=== PATIENT | female | born 1955 | race Caucasian/White ===

== ENCOUNTER → 2024-02-08 07:20 | Outpatient (REF) | payer OTHER, SELFPAY | LOC: RAD 07:20 | PROVIDERS: ATTENDING PHYSICIAN Podiatrist; FAMILY PHYSICIAN Internal Medicine | DX: I73.9 Peripheral vascular disease, unspecified (principal) | CPT/HCPCS: 93922; 93925 ==

== ENCOUNTER → 2024-02-08 11:51 | Outpatient (REF) | payer OTHER, SELFPAY | LOC: EMG 11:51 | PROVIDERS: ATTENDING PHYSICIAN Internal Medicine | DX: G62.9 Polyneuropathy, unspecified (principal); R20.0 Anesthesia of skin | CPT/HCPCS: 95886; 95913 ==

== ENCOUNTER 2024-08-19 18:33 | Inpatient (IN) | payer BC, SELFPAY ==
[2024-08-19] VITALS (16 sets, daily range): BP systolic 133–177; BP diastolic 65–88; BMI 18.2
[2024-08-19 14:43] LABS: % Basophils 0.6 % (0-2); % Eosinophils 2.3 % (0-6); % Immature Granulocytes 0.5 % (0-0.5); % Monocytes 8.7 % (1.7-9.3); % Neutrophils 75.9 % (42.2-75.2); Absolute Eosinophils 0.2 10^3/uL (0-0.7); Absolute Lymphocytes 0.8 10^3/uL (1.2-3.4); Absolute Monocytes 0.6 10^3/uL (0.1-0.6); Absolute Neutrophils 4.9 10^3/uL (1.4-6.5); Hematocrit 25.6 % (37.0-47.0); Hemoglobin 7.9 g/dL (12.0-16.0); Mean Corp Hgb Conc. 30.9 g/dL (33.0-37.0); Mean Corpuscular Hgb 20.8 pg (27.0-31.0); Mean Corpuscular Volume 67.5 fL (81.0-99.0); Mean Platelet Volume 9.3 fL (7.4-10.4); Nucleated Red Blood Cells % 0 %; Platelet Count 512 10^3/uL (130-400); Red Blood Cell Count 3.79 10^6/uL (4.20-5.40); Red Cell Dist. Width 23.3 % (11.5-14.5); White Blood Cell Count 6.4 10^3/uL (4.8-10.8)
[2024-08-19 16:48] LABS: ALT (SGPT) 19 U/L (0-35); AST (SGOT) 24 U/L (14-36); Albumin 4.7 g/dl (3.5-5.0); Alkaline Phosphatase 63 U/L (38-126); Blood Urea Nitrogen 40 mg/dl (7-17); Calcium 10.2 mg/dl (8.4-10.2); Carbon Dioxide 23 mmol/L (22-30); Chloride 102 mmol/L (98-107); Glucose 92 mg/dl (70-99); Potassium 4.8 mmol/L (3.5-5.1); Sodium 134 mmol/L (135-145); Total Bilirubin 0.5 mg/dl (0.2-1.3); Total Protein 6.7 g/dl (6.3-8.2); eGFR > 60.00
--- NOTE | 2024-08-19 16:50 | ED.GENMED ---
History of Present Illness
General
Chief Complaint: Abnormal Lab Value
Source: patient
Exam Limitations: none
Time Seen by Provider: 08/19/24 15:23
Nursing documentation reviewed up to this point in time: agreed with
History of Present Illness
History of Present Illness:
68-year-old female presenting to the emergency department today with concerns of low hemoglobin prior to arrival performed by the primary care doctor yesterday resulted today in the sixes. Has had some generalized fatigue weakness over the past few
weeks. Denies any noticeable GI changes. Denies any known bleeding. Does take iron daily
Past History
Past History
ED Past Medical History: GERD, HTN, AL, Other (Pulmonary hypertension, scleroderma, lumbar DJD, lumbar spinal stenosis, sciatica, postherpetic neuralgia, barrets esophagus, hiatel hernia, ) and Other (Crest syndrome/scleroderma, Raynaud's)
ED Past Surgical History: Appendectomy, Gynecological (Hysterectomy), Orthopedic (Left wrist) and Other (Rectal prolapse repair, Hernia repair, Adhesions)
Social History
Tobacco: Non-smoker
Alcohol: None
Personal:
Living: with family
Employment: Employed
Family History
Family History: Other (Noncontributory)
Review of Systems
Review of Systems
Allergies reviewed?: Yes
All Other Systems: ROS reviewed and negative except as documented in HPI and ROS
Phy Exam
Physical Exam
Physical Exam:
GENERAL: Alert , in no apparent distress
EYE: pupils equal and reactive
NECK: Supple, no significant adenopathy.
ENT: o/p clr, mmm.
CARDIAC: Regular rate and rhythm .
LUNGS: Clear breath sounds bilaterally, no acute respiratory distress, no wheezes/rales/rhonchi
ABDOMEN: Rectal examination with brown stool guaiac positive, otherwise abdomen soft, without focal tenderness, no r/g, no cvat
NEUROLOGICAL: Alert and oriented, no focal neuro deficits
SKIN: Warm and dry, skin intact.
MUSCULOSKELETAL: No edema, well perfused.
PSYCH: Normal and appropriate interaction.
Course
Orders/Labs/Results
Orders:
Orders
08/19/24 14:30
CBC/With Diff [Complete Blood Count/With Diff] Urgent
08/19/24 16:08
* Blood Bank Products Urgent
Blood Bank Products: *Packed RBC Leuko(PRBC's)
Quantity: 1
Transfuse Today: Yes
Reason: Anemia
08/19/24 16:23
Type And Crossmatch [Type+Screen] Urgent
Comprehensive Metabolic Panel Urgent
08/19/24 16:39
ABO2 Routine
BBK Wristband Number:
Associate notified that ABO2 has been ordered: ROLANDO
Date: 08/19/24
Time: 16:34
Bucket Hooker ID: [id number]
Abnormal Lab Results
08/19/24 08/19/24
14:30 16:23
RBC 3.79 L 10^6/uL
(4.20-5.40)
Hgb 7.9 L g/dL
(12.0-16.0)
Hct 25.6 L %
(37.0-47.0)
MCV 67.5 L fL
(81.0-99.0)
MCH 20.8 L pg
(27.0-31.0)
MCHC 30.9 L g/dL
(33.0-37.0)
RDW 23.3 H %
(11.5-14.5)
Plt Count 512 H 10^3/uL
(130-400)
Absolute Lymphs (auto) 0.8 L 10^3/uL
(1.2-3.4)
Neutrophils % 75.9 H %
(42.2-75.2)
Lymphocytes % 12.0 L %
(20.5-51.1)
Sodium 134 L mmol/L
(135-145)
BUN 40 H mg/dl
(7-17)
08/19/24 14:30
08/19/24 16:23
Vital Signs
Initial and Last Documented VS:
Initial Vital Signs
Temp Pulse Resp BP Pulse Ox
98.2 F 84 16 174/75 98
08/19/24 14:18 08/19/24 14:18 08/19/24 14:18 08/19/24 14:18 08/19/24 14:18
Last Documented Vital Signs
Temp Pulse Resp BP Pulse Ox
98.2 F 84 16 174/75 98
08/19/24 14:18 08/19/24 14:18 08/19/24 14:18 08/19/24 14:18 08/19/24 14:18
MDM/Problems Addressed
MDM/Problems Addressed:
68-year-old female presenting to the emergency department today for concerns of low hemoglobin that was drawn yesterday at [facility] here was 3 drawn 7.9 slightly lower than outpatient lab from a week ago but higher than what was drawn
yesterday. However the patient did have a rectal examination that revealed blood in her stool concerning this plan to give a unit of blood and monitor overnight here.
*Critical Care Note
Total Time (30-74mins, 75-104mins- exclusive of procedures): Not Applicable
ED Attending Note
-
Portions of this chart may have been created with voice recognition software.� Occasional wrong word or��sound alike� substitutions may have occurred due to the inherent limitations of voice recognition software.
Discharge Plan
Departure
Patient Disposition: Admit
Date of Disposition: 08/19/24
Time of Disposition: 16:54
Admit to: Med/Surg
Admit to doctor: Kimi
Presentation/result/management discussed w/ accepting MD/DO: Hospitalist
Patient with high blood pressure during this ER visit?: No
Condition: Good
Covid-19: Not Applicable
Discharge Problem:
GI bleed, Anemia
Prescriptions:
No Action
dexlansoprazole [Dexilant] 60 MG capsule,biphase delayed releas
60 mg PO DAILY
ibuprofen [Advil] 200 MG tablet
800 mg PO PRN PRN (Reason: pain)
Amlodipine
5 mg PO DAILY
Dipyridamole
50 mg PO TID
Lidocaine
1 applic topical TID
Patient Comments:
5% cream to right leg
Lisinopril
5 mg PO DAILY
Ranitidine
300 mg PO HS
Sildenafil
20 mg PO TID
Gabapentin
600 mg PO TID
tramadol [Ultram] 50 MG tablet
50 mg PO BID
ondansetron 4 MG tablet,disintegrating
4 mg PO Q6HPRN PRN (Reason: nausea)
promethazine 25 MG tablet
12.5 mg PO Q6HPRN PRN (Reason: vomiting) Qty: 10 0RF
acetaminophen-codeine 1 TABLET tablet
1 tab PO Q4HPRN PRN (Reason: pain) Qty: 14 0RF
docusate sodium [Colace] 100 MG capsule
100 mg PO BID Qty: 20 0RF
prednisone 20 mg tablet
20 mg PO BID Qty: 14 0RF
tramadol 100 mg tablet
100 mg PO Q6H PRN (Reason: pain) Qty: 30 0RF
docusate sodium [Colace] 100 mg capsule
100 mg PO BID PRN (Reason: constipation) Qty: 20 0RF
Referrals:
Diane Evans NP [Family Provider] -
Interventions
Interventions:
*Risk Screen - Suicide Last Done: 08/19/24 14:18
*Neglect/Abuse Screening Last Done: 08/19/24 14:18
Discharge Date and Time
Print Language: LIBERIAN
[2024-08-19] MEDS: PROTONIX IV 80 MG IV (17:05)
--- NOTE | 2024-08-19 18:14 | W.PN.UPDATE ---
Update Note
Progress Note Update
Seen and examined by me independently in collaboration with the medical collections.
Past medical history/social history/medication/allergies reviewed.
Lab data and imaging data reviewed.
Patient sent in because of severe anemia noted on the labs. She has 2 months of fatigue but no acute coronary syndrome symptoms or shortness of breath. She is hemodynamically stable.
She has heme positive brown stools.
She has history of systemic sclerosis or crest syndrome. She has issues of dysphagia secondary to that. Denies any prior history of GI bleed needing hospital admission or transfusion.
He occasionally takes NSAIDs but not on a daily basis for neuropathy.
EGD from last year showed severe esophagitis with salmon-colored mucosa and was bleeding to touch with the scope. She had biopsies as well done and I do not have a report on them.
She also had a colonoscopy at the same time and apparently no signs of bleeding.
She has iron deficiency based on CBC parameters.
Admit to hospital. Transfuse PRBC and follow H&H.
Give her on PPI twice daily. She is on multitude of GERD treatments including PPI, Pepcid and Tums.
Check iron studies.
Keep on clear liquids for now. Consult GI.
Blood pressure on the higher side which she says was noticed recently as well. She is on combination of Norvasc and methotrexate which I would continue. Will start him on IV hydralazine as needed and adjust antihypertensives as needed.
For systemic sclerosis she is on methotrexate with folic acid which I would continue.
Full code
[2024-08-19 18:26] LABS: Iron < 20 ug/dl (37-170)
--- NOTE | 2024-08-19 18:33 | HPS.HSE ---
Family Physician
-
Family Physician: Diane Evans
Chief Complaint
-
Abnormal lab value on outpatient blood work
History of Present Illness
Patient is a 68-year-old pleasant lady who has a history of systemic sclerosis and crest syndrome, GERD, hypertension, pulmonary hypertension, UT, rectal prolapse presenting to the ED for evaluation of abnormal lab value on outpatient blood work,
specifically low hemoglobin. 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 Patient saw PCP on Thursday and on repeat blood work, her hemoglobin was found to be low (~6). Patient reports
she has been feeling more tired for the past couple weeks. Denies shortness of breath, dizziness, chest pain, change in bowel movements, recent weight loss, melena, hematochezia, hematemesis. Patient has had difficulty swallowing solid food given
her history of crest syndrome but notes symptoms of dysphagia or dyspepsia have not progressed recently.
Patient reports she was evaluated for possible GI bleeding over a year ago by her razor grinder. Upon review of her chart, her ED EGD in 2022 shows Gordon's esophagus. Per patient, colonoscopy was unremarkable and she was told she had anal
fissure. She denies any family history of GI cancer. Has been taking ibuprofen intermittently but not on a regular daily basis. She takes folic acid and cyanocobalamin daily.
Medical History
Past Medical History
Past Medical History: Reports GERD, HTN, UT and Other (Systemic sclerosis, crest syndrome, pulmonary hypertension, rectal prolapse, small bowel obstruction)
Past Surgical History: Reports Appendectomy, Gynocological and Orthopedic
Social History
Tobacco: Non-smoker
Living: With Family
Family History
Family History: Other (No family history of GI cancer, daughter has lymphoma)
Allergies / Home Medications
Allergies reflects when Allergies were last updated in [facility].
Home Medications with original date entered in [facility]
Allergy/Medication List:
Allergies
Allergy/AdvReac Type Severity Reaction Status Date / Time
acetaminophen [From Percocet] Allergy Intermediate Rash Verified 08/19/24 14:18
oxycodone [From Percocet] Allergy Intermediate Rash Verified 08/19/24 14:18
Cephalosporins Allergy Unknown Verified 08/19/24 14:18
penicillin G Allergy Rash Verified 08/19/24 14:18
Sulfa (Sulfonamide Allergy Rash Verified 08/19/24 14:18
Antibiotics)
Home Medications
ibuprofen 200 mg tablet (Advil) 600 mg PO DAILYPRN PRN mild pain 08/05/13
amlodipine 10 mg tablet (Norvasc) 10 mg PO DAILY 08/19/24
biotin 1 mg capsule 1 mg PO DAILY 08/19/24
cholecalciferol (vitamin D3) 25 mcg (1,000 unit) tablet (Vitamin D3) 25 mcg PO DAILY 08/19/24
cyanocobalamin (vitamin B-12) 1,000 mcg tablet 1,000 mcg PO DAILY 08/19/24
cyclosporine 0.05 % eye drops in a dropperette (Restasis) 1 drp BOTH EYES Q12H 08/19/24
docusate sodium 100 mg capsule (Colace) 100 mg PO BIDPRN PRN constipation 08/19/24
duloxetine 30 mg capsule,delayed release (Cymbalta) 30 mg PO DAILY 08/19/24
famotidine 40 mg tablet (Pepcid) 40 mg PO HS 08/19/24
folic acid 1 mg tablet 1 mg PO DAILY 08/19/24
hydrochlorothiazide 12.5 mg tablet 12.5 mg PO DAILY 08/19/24
methotrexate sodium 2.5 mg tablet 12.5 mg PO FR 08/19/24
oxycodone 5 mg tablet 5 mg PO TIDPRN PRN severe pain 08/19/24
sildenafil (pulm.hypertension) 20 mg tablet 60 mg PO DAILY 08/19/24
therapeutic multivitamin 1 tab PO DAILY 08/19/24
Review of Systems
-
History Source: Patient
Constitutional: Reports Fatigue
EENT: Reports No Symptoms
Respiratory: Reports No Symptoms
Cardiac: Reports No Symptoms
Abdomen/GI: Reports No Symptoms
: Reports No Symptoms
Musculoskeletal: Reports No Symptoms
Skin: Reports No Symptoms
Neurological: Reports No Symptoms
Endocrine: Reports No Symptoms
Hematologic/Lymphatic: Reports No Symptoms
Psych: Reports No Symptoms
Physical Exam
Vital Signs
Vital Signs
Temp Pulse Resp BP Pulse Ox
98.2 F 71 15 166/75 98
08/19/24 18:04 08/19/24 18:04 08/19/24 18:04 08/19/24 18:04 08/19/24 14:18
Physical Exam
General: Well Developed, No Apparent Distress, Comfortable and Cachectic
HEENT: NormoCephalic, [place] Conjunctivae and Other (No supraclavicular lymphadenopathy)
Respiratory: Clear
Cardiac: S1/S2 and Regular Rhythm
GI: Soft, Non Tender, Non Distended and Normal Bowel Sounds
Musculoskeletal: No Clubbing, No Cyanosis, No Edema and Other (Raynaud's. 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 Contracture of the left middle finger.)
Skin: Warm
Neuro: Awake, Alert and Oriented
Hematologic/Lymphatic: No Lymphadenopathy
Psych: Calm
Laboratory Results
-
08/19/24 14:30
08/19/24 16:23
Laboratory Results
Total Bilirubin 0.5 mg/dl (0.2-1.3) 08/19/24 16:23
AST 24 U/L (14-36) 08/19/24 16:23
ALT 19 U/L (0-35) 08/19/24 16:23
Alkaline Phosphatase 63 U/L (38-126) 08/19/24 16:23
Impression/Plan
-
68-year-old female history of systemic sclerosis and crest syndrome, hypertension, GERD, pulmonary hypertension presenting to the ED with:
#Anemia, acute on chronic
- Vitals stable
- Guaiac positive
- Hemoglobin 7.9, patient is being transfused 1 unit PRBC
- EGD in 2022 showed Gordon's esophagus
- Suspect upper GI bleed given history and prior EGD
- GI consult
- Diet clear liquids
- Protonix 40 mg IV twice daily
- Continue Pepcid
- Hold Advil
- H&H
- Transfuse if hemoglobin less than 7
#Hypertension
- Continue amlodipine, hydrochlorothiazide
- Hydralazine as needed
#Pulmonary hypertension
- Continue sildenafil
#GERD
- Continue Pepcid
- Protonix 40 mg IV twice daily
#Systemic sclerosis, CREST syndrome
- Continue home meds
DVT prophylaxis SCD
Full code
[2024-08-19 18:35] LABS: Percent Saturation 4.71697 % (20-50); Total Iron Binding Capacity 424 ug/dl (265-497)
[2024-08-19 19:47] LABS: Ferritin 4.9 ng/ml (11.1-264.0)
[2024-08-19] MEDS: RESTASIS 0.05% OPHTHALMIC EMULSION 1 DROPS BOTH EYES (21:11)
[2024-08-19] MEDS: PEPCID 20 MG PO (21:12)
[2024-08-19] MEDS: METHOTREXATE 12.5 MG PO (21:12)
--- NOTE | 2024-08-20 04:58 | PTCARENOTE ---
Pt arrived to floor via stretecher and ambulated to bed with a steady gait. Pt aox3, VSS. Pt states she is feeling much better after transfusion. No other complaints at this time. Reviewed plan of care with pt. Pt oriented to room, call [facility] within
reach. Will continue to monitor.
[2024-08-20 06:11] LABS: % Basophils 0.8 % (0-2); % Eosinophils 8.8 % (0-6); % Immature Granulocytes 0.4 % (0-0.5); % Lymphocytes 11.5 % (20.5-51.1); % Monocytes 10.7 % (1.7-9.3); % Neutrophils 67.8 % (42.2-75.2); Absolute Eosinophils 0.5 10^3/uL (0-0.7); Absolute Lymphocytes 0.6 10^3/uL (1.2-3.4); Absolute Monocytes 0.6 10^3/uL (0.1-0.6); Absolute Neutrophils 3.5 10^3/uL (1.4-6.5); Hematocrit 30.3 % (37.0-47.0); Hemoglobin 9.5 g/dL (12.0-16.0); Mean Corp Hgb Conc. 31.4 g/dL (33.0-37.0); Mean Corpuscular Hgb 22.2 pg (27.0-31.0); Mean Corpuscular Volume 70.8 fL (81.0-99.0); Mean Platelet Volume 9.3 fL (7.4-10.4); Nucleated Red Blood Cells % 0 %; Platelet Count 411 10^3/uL (130-400); Red Blood Cell Count 4.28 10^6/uL (4.20-5.40); Red Cell Dist. Width 22.5 % (11.5-14.5); White Blood Cell Count 5.2 10^3/uL (4.8-10.8)
[2024-08-20 06:24] LABS: Blood Urea Nitrogen 32 mg/dl (7-17); Calcium 9.6 mg/dl (8.4-10.2); Carbon Dioxide 21 mmol/L (22-30); Chloride 106 mmol/L (98-107); Estimated Creatinine Clearance 46 ml/min; Glucose 86 mg/dl (70-99); Potassium 4.4 mmol/L (3.5-5.1); Sodium 136 mmol/L (135-145); eGFR > 60.00
[2024-08-20 07:00] VITALS: BP 195/91
[2024-08-20] MEDS: NORVASC 10 MG PO (07:54)
[2024-08-20] MEDS: NSS (PRESERVATIVE FREE) 10 ML IV (07:54)
[2024-08-20] MEDS: CYMBALTA DELAYED RELEASE 30 MG PO (07:54)
[2024-08-20] MEDS: VITAMIN B-12 1000 MCG PO (07:54)
[2024-08-20] MEDS: REVATIO 60 MG PO (07:54)
[2024-08-20] MEDS: THERAGRAN 1 TABLET PO (07:54)
[2024-08-20] MEDS: ORETIC 12.5 MG PO (07:54)
[2024-08-20] MEDS: FOLVITE 1 MG PO (07:54)
[2024-08-20] MEDS: VITAMIN D3 (cholecalciferol) 25 MCG PO (07:54)
[2024-08-20] MEDS: PROTONIX IV 40 MG IV (07:55)
[2024-08-20] MEDS: RESTASIS 0.05% OPHTHALMIC EMULSION 1 DROPS BOTH EYES (07:55)
--- NOTE | 2024-08-20 08:55 | CON.GI ---
Addendum entered and electronically signed by Mihai Simon MD 08/20/24 11:01:
I saw and examined the patient.
The CUSTOMER SUPPLY COORDINATOR or PA's note was reviewed and I agree with the note.
Comment:
Pt with 68 y/o woman with a hx of CREST, gerd on PPI therapy and followed by [facility] found to anemia on routine outpatient labs. Pt only admits to ongoing gerd. She contacted her outpatient GI who wants to perform an egd/colonoscopy on her
outpatient. she did have scopes done in 2012 which showed esophagitis.
abd; soft, nontender
impression:
iron def anemia
gerd
plan:
hgb stable after transfusion and no signs of active bleeding. It is appropriate to f/u outpatient as pt also does wish to pursue this option (vs inpatient) with her primary GI
will sign off
Original Note:
Consultation
-
Date/Time Consultation Requested: 08/19/241947
Date/Time Consultation Performed: 08/20/24829
Requesting Provider: Dr. Osei
Performing Provider: Dr. Simon/CLARIBEL Tavera
Reason for Consultation: OB pos anemia
Medical History
Chief Complaint / HPI
Chief Complaint: fatigue, low hgb outpatient labs
History of Present Illness:
68-year-old female with past medical history of scleroderma/crest syndrome, hypertension, pulmonary hypertension GERD, ND, lumbar DJD, spinal stenosis, postherpetic neuralgia, Gordon's esophagus, hiatal hernia, Raynaud's syndrome who presents to
the emergency room after having fatigue as an outpatient getting outpatient labs and being called by her PCP being told to come to the ER as her hemoglobin was in the 6 range. She was in contact with her GI doctor, Dr. Bedolla yesterday prior to
coming to the emergency room and plan was to have outpatient follow-up with procedures. Patient's hemoglobin was repeated here it was 7.9. She had brown OB positive stool. She was transfused 1 unit of packed red blood cells which brought her
hemoglobin up to 9.5. She denies any GI complaints. She has chronic issues with dysphagia associated with her crest syndrome which are no different than her usual. She is on Dexilant in the morning and famotidine in the evening. She denies any
fevers, chills, nausea, vomiting, melena, hematochezia, odynophagia, early satiety or unintentional weight loss. She has noticed no changes in her bowel habits. Currently at the present time after blood transfusion she is feeling much improved.
She denies any chest pain or shortness of breath. She was offered upper endoscopy however she declined. She states he would like this with her primary GI. She plans on calling him and they already planned on follow-up procedure.
Patient had a history of EGD 1 year ago, reports of severe esophagitis (report unavailable to myself) with her GI physician. Also had colonoscopy at the same time.
Past Medical History
Past Medical History: Other (Scleroderma, crest syndrome, Raynaud's, hypertension, pulmonary hypertension, GERD, ND, lumbar degenerative disc disease, spinal stenosis, postherpetic neuralgia, Gordon's esophagus, hiatal hernia)
Past Surgical History: Other (Appendectomy hysterectomy, left wrist surgery, rectal prolapse repair, hernia repair,)
Social History
Tobacco: Non-Smoker
Alcohol: None
Drug: None
Personal:
Living: With Family
Employment: Employed
Family History
Family History: Other (No family history gastrointestinal malignancy or IBD)
Allergies / Home Medications
Allergy/AdvReac Type Severity Reaction Status Date / Time
acetaminophen [From Percocet] Allergy Intermediate Rash Verified 08/19/24 14:18
oxycodone [From Percocet] Allergy Intermediate Rash Verified 08/19/24 14:18
Cephalosporins Allergy Unknown Verified 08/19/24 14:18
penicillin G Allergy Rash Verified 08/19/24 14:18
Sulfa (Sulfonamide Allergy Rash Verified 08/19/24 14:18
Antibiotics)
�Medication �Instructions �Recorded
ibuprofen 200 mg tablet (Advil) 600 mg PO DAILYPRN PRN mild pain 08/05/13
amlodipine 10 mg tablet (Norvasc) 10 mg PO DAILY 08/19/24
biotin 1 mg capsule 1 mg PO DAILY 08/19/24
cholecalciferol (vitamin D3) 25 25 mcg PO DAILY 08/19/24
mcg (1,000 unit) tablet (Vitamin
D3)
cyanocobalamin (vitamin B-12) 1,000 mcg PO DAILY 08/19/24
1,000 mcg tablet
cyclosporine 0.05 % eye drops in a 1 drp BOTH EYES Q12H 08/19/24
dropperette (Restasis)
docusate sodium 100 mg capsule 100 mg PO BIDPRN PRN constipation 08/19/24
(Colace)
duloxetine 30 mg capsule,delayed 30 mg PO DAILY 08/19/24
release (Cymbalta)
famotidine 40 mg tablet (Pepcid) 40 mg PO HS 08/19/24
folic acid 1 mg tablet 1 mg PO DAILY 08/19/24
hydrochlorothiazide 12.5 mg tablet 12.5 mg PO DAILY 08/19/24
methotrexate sodium 2.5 mg tablet 12.5 mg PO FR 08/19/24
oxycodone 5 mg tablet 5 mg PO TIDPRN PRN severe pain 08/19/24
sildenafil (pulm.hypertension) 20 60 mg PO DAILY 08/19/24
mg tablet
therapeutic multivitamin 1 tab PO DAILY 08/19/24
Review of Systems
-
All other systems: A 12 pt ROS was Negative except as stated above in HPI
Vital Signs
Temp Pulse Resp BP Pulse Ox
98.1 F 63 14 195/91 91
08/20/24 07:00 08/20/24 07:00 08/20/24 07:00 08/20/24 07:00 08/20/24 07:00
Physical Exam
Exam
General: Other (Very thin)
HEENT: Anicteric
Respiratory: Clear
Cardiac: Regular Rhythm
GI: Soft, Non Tender, Non Distended and Normal Bowel Sounds
Rectal: Other (Brown OB positive stool (rectal performed by emergency room))
Musculoskeletal: No Edema
Neuro: AO x 3
Psych: Calm
Results
WBC 5.2 10^3/uL (4.8-10.8) 08/20/24 05:36
Hgb 9.5 g/dL (12.0-16.0) L D 08/20/24 05:36
Hct 30.3 % (37.0-47.0) L 08/20/24 05:36
MCV 70.8 fL (81.0-99.0) L 08/20/24 05:36
Plt Count 411 10^3/uL (130-400) H 08/20/24 05:36
Absolute Neuts (auto) 3.5 10^3/uL (1.4-6.5) 08/20/24 05:36
Sodium 136 mmol/L (135-145) 08/20/24 05:36
Potassium 4.4 mmol/L (3.5-5.1) 08/20/24 05:36
Chloride 106 mmol/L (98-107) 08/20/24 05:36
Carbon Dioxide 21 mmol/L (22-30) L 08/20/24 05:36
BUN 32 mg/dl (7-17) H 08/20/24 05:36
Creatinine 0.7 mg/dL (0.6-1.0) 08/20/24 05:36
Calcium 9.6 mg/dl (8.4-10.2) 08/20/24 05:36
Total Bilirubin 0.5 mg/dl (0.2-1.3) 08/19/24 16:23
AST 24 U/L (14-36) 08/19/24 16:23
ALT 19 U/L (0-35) 08/19/24 16:23
Alkaline Phosphatase 63 U/L (38-126) 08/19/24 16:23
Diagnostic Image Results:
None present admission
Prior GI Procedures:
EGD: Patient had a history of EGD 1 year ago, reports of severe esophagitis (report unavailable to myself) with her GI physician. (Dr. Bedolla at [place])
Colonoscopy: Patient had colonoscopy approximately [address] Bedolla ([place]). Records unavailable to myself
Assessment / Plan
-
68-year-old female with past medical history of scleroderma/crest syndrome, hypertension, pulmonary hypertension GERD, ND, lumbar DJD, spinal stenosis, postherpetic neuralgia, Gordon's esophagus, hiatal hernia, Raynaud's syndrome who presents to
the emergency room after having fatigue as an outpatient getting outpatient labs and being called by her PCP being told to come to the ER as her hemoglobin was in the 6 range. She was in contact with her GI doctor, Dr. Bedolla yesterday prior to
coming to the emergency room and plan was to have outpatient follow-up with procedures. Patient's hemoglobin was repeated here it was 7.9. She had brown OB positive stool. She was transfused 1 unit of packed red blood cells which brought her
hemoglobin up to 9.5. She denies any GI complaints. Patient has been in contact with her primary GI. She was off her endoscopy here currently she declined. He would like to eat. He is feeling improved after being transfused. Denies any chest
pain, shortness of breath. Discussed with her signs and symptoms of active GI bleeding. If has any of these to call 911 and proceed to closest emergency room. She is to follow-up with her primary GI as discussed. Continue her current regimen of
Dexilant in the morning and famotidine in the evening.
Impression:
Anemia-> improved hemoglobin status post 1 unit packed red blood cell, hemoglobin currently 9.5
OB positive stool
History of esophagitis, hiatal hernia
Plan:
-Patient declining endoscopic procedure while here in the hospital
-Will follow-up with her primary GI doctor (Dr. Bedolla) Who she has been in contact with yesterday and planned on procedures as an outpatient with him already
-Continue present GI regimen which is Dexilant in the morning and famotidine in the evening
-Moody with patient signs and symptoms of active GI bleeding return to emergency room with any sign
-Okay for diet
-No further recommendations from GI perspective. Discussed with internal medicine attending.
-Will be available as needed or by request.
-
-
Thank you for consultation and allowing me to participate in the patient's care. Please call the [facility] physician during the after hours with any questions or concerns.
[2024-08-20 09:35] LABS: Hypochromasia 1+; Normal RBC Morphology No
[2024-08-20 09:36] LABS: Ovalocytes 1+; Polychromasia Slight; Tear Drop Red Blood Cells Occasional
[2024-08-20 10:58] VITALS: BP 160/86; BP 195/91
[2024-08-20 11:00] VITALS: BP 169/74; BP 195/91; PULSE 66
--- NOTE | 2024-08-20 11:18 | W.PN.HOSP.TC ---
Addendum entered and electronically signed by Torsten Card MD 09/01/24 15:37:
BMI: 18.2 sec to under weight
Anemia is associated with iron deficiency
Addendum entered and electronically signed by Torsten Card MD 08/20/24 11:45:
HTN - BP readings noted . Improved blood pressure after getting her medications this morning. Patient states last week that she was put on hydrochlorothiazide by PCP for hypertension management. Advised to get back to PCP for follow-up and if
needed consider increased dose of medications.
Original Note:
Today's Communication/Plan
-
DC
Assessment / Plan
Assessment / Plan
68-year-old female history of systemic sclerosis and crest syndrome, hypertension, GERD, pulmonary hypertension presenting to the ED with:
#Symptomatic Anemia, acute on chronic
- HD stable
- Guaiac positive
- Hemoglobin 7.9, patient is being transfused 1 unit PRBC. Improved H&H without any active GI bleeding currently.
- EGD in 2022 showed Gordon's esophagus
- Suspect upper GI bleed given history and prior EGD
- GI consulted - would benefit EGD but patient wishes to have EGD done by primary GI and with stability felt it was okay for her to be discharged on follow with primary GI as an outpatient.
- She is on PPI which we will continue
- Continue Pepcid
- Advised not to use Advil
-Iron deficiency noted-start on iron pills as tolerated
#Hypertension
- Continue amlodipine, hydrochlorothiazide
- Hydralazine as needed
#Pulmonary hypertension
- Continue sildenafil
#GERD
- Continue Pepcid
- Protonix 40 mg IV twice daily
#Systemic sclerosis, CREST syndrome
- Continue home meds
DVT prophylaxis SCD
Full code
Medically stable for DC home
Anticipated Discharge: Today
Subjective/Interval History
-
Date of Service: August 20, 2024
No obvious external bleeding.
Patient voices no specific complaints including GI symptoms. Denies any dyspeptic symptoms, abdo pain , nausea or vomiting.
Objective Data
-
Labs:
Laboratory Results
08/20/24
05:36
WBC 5.2
Hgb 9.5 L D
Hct 30.3 L
Plt Count 411 H
Sodium 136
Potassium 4.4
Chloride 106
Carbon Dioxide 21 L
BUN 32 H
Creatinine 0.7
Glucose 86
Calcium 9.6
Vital Signs:
Vital Signs
Temp Pulse Resp BP Pulse Ox
98.1 F 63 14 195/91 91
08/20/24 07:00 08/20/24 07:00 08/20/24 07:00 08/20/24 07:00 08/20/24 07:00
I&O
08/19/24 08/20/24 08/21/24
06:59 06:59 06:59
Intake Total 250 / 250
Balance 250 / 250
Review of Systems
-
Constitutional: Denies Fever
EENT: Denies Sore Throat
Respiratory: Denies Trouble Breathing
Cardiac: Denies Chest Pain
Neuro: Denies Dizzy
Physical Exam
-
General: No Apparent Distress
HEENT: Moist Mucous Membranes
Respiratory: Clear to Auscultation
Cardiac: Regular Rhythm and S1/S2
GI: Soft, Nontender, Nondistended and Normal Bowel Sounds
Musculoskeletal: No Edema
Neuro: AO x 3
Data Reviewed
-
Labs: Labs Reviewed by me
--- NOTE | 2024-08-20 11:45 | W.DCSUMMARY ---
Discharge Summary
Discharge Data
Date of Admission: 08/19/24
Date of Discharge: 08/20/24
-
Pending Results: No
Hospital Course
Primary diagnosis:
Symptomatic severe anemia
Brown heme positive stools
Hx Gordon's esophagus
Secondary diagnosis:
Systemic sclerosis
Hypertension essential
Hospital course:
Patient was referred to hospital because of severe anemia noted on the labs. She was also having increasing fatigue for the last 2 months. She had hemodynamic stability. She had a brown heme positive stool. No evidence of active overt GI bleed.
Her hemoglobin was 7.9 and was transfused 1 unit of PRBC with improvement of H&H to 9.5 prior to discharge. She had an endoscopy upper GI and a colonoscopy a year ago. Report from that shows she had severe Gordon's esophagus. She uses as needed
NSAIDs which she was discouraged on this admission.
She would benefit EGD. Patient wishes to have a repeat EGD done by primary GI physician. Since she was stable after transfusion and no significant GI symptoms she was discharged home to be followed by primary GI.
Iron deficient by blood work so daily ferrous sulfate was prescribed.
Consultants on board:
GI -Mihai Andujar
Discharge Plan
-
Patient Disposition: Home (Routine Discharge)
Discharge Diagnosis/Procedures: Symptomatic anemia with brown heme positive stool. History of Gordon's esophagus. Systemic sclerosis/crest syndrome on methotrexate
Diet: Regular
Activity: As tolerated
Driving Restrictions: As prior to admission
Bathing Restrictions: None
Blood Work: CBC blood work in one week -arrange through your PCP
Referrals:
Diane Evans NP [Family Provider] - in less than 1 week
Prescriptions:
New
ferrous sulfate 325 mg (65 mg iron) tablet
325 mg PO DAILY Qty: 30 0RF
Continued
famotidine [Pepcid] 40 mg Tablet
40 mg PO HS
cyanocobalamin (vitamin B-12) 1,000 mcg Tablet
1,000 mcg PO DAILY
therapeutic multivitamin Tablet
1 tab PO DAILY
methotrexate sodium 2.5 mg Tablet
12.5 mg PO FR
amlodipine [Norvasc] 10 mg Tablet
10 mg PO DAILY
folic acid 1 mg Tablet
1 mg PO DAILY
oxycodone 5 mg Tablet
5 mg PO TIDPRN PRN (Reason: severe pain)
Patient Comments:
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
cyclosporine [Restasis] 0.05 % Dropperette
1 drp BOTH EYES Q12H
duloxetine [Cymbalta] 30 mg Capsule,Delayed Release(Dr/Ec)
30 mg PO DAILY
sildenafil (pulm.hypertension) 20 mg Tablet
60 mg PO DAILY
cholecalciferol (vitamin D3) [Vitamin D3] 25 mcg (1,000 unit) Tablet
25 mcg PO DAILY
hydrochlorothiazide 12.5 mg Tablet
12.5 mg PO DAILY
biotin 1 mg Capsule
1 mg PO DAILY
docusate sodium [Colace] 100 mg capsule
100 mg PO BIDPRN PRN (Reason: constipation)
Discontinued
ibuprofen [Advil] 200 MG tablet
600 mg PO DAILYPRN PRN (Reason: mild pain)
Discharge Orders:
Discharge Patient (As Directed); Ordered 08/20/24
Ordered By: Torsten Card
Discharge Date and Time
Print Language: ZIMBABWEAN
--- NOTE | 2024-08-20 12:26 | CM ---
Met with patient to obtain information for assessment. Patient stated that she lives with her spouse in a single level home with two steps to enter. Her daughter lives across the street and is supportive. Patient described herself as independent
with her ADLs, personal care, dressing and bathing. She can cook, clean, do laundry and transport herself to all of her appointments and does the shopping. She stated that she cares for her spouse at times.
Patient denied any DME in her home.
She has never had VN.
She has not been to a SNF.
Patient has a prescription plan and she uses, [facility] in [place] for all of her medications.
Patient's PCP is, Diane Evans.
Patient is aware of her discharge and is agreeable. IMM signed and in chart. Daughter will transport home.
Patient stated that she does have insurance through [email or web address]. She did not have card upon admission but her daughter will bring it when she picks patient up.
Plan: Case management will continue to follow and assist with discharge planning. Home no needs.
[2024-08-20 14:33] VITALS: BP 154/85
--- NOTE | 2024-08-20 14:33 | CHAP ---
Billie was getting ready to go home when I came. She welcomed prayer - giving thanks for her good progress and asking blessings on her continued recovery. Emotional and spiritual support provided.
--- NOTE | 2024-08-22 10:26 | PN.CDI ---
CDI
- -
CDI:
Physician Documentation Request
Admit Date: 08/19/24 18:33
Dear Doctor Kyaw,
Please review the following and provide your response in the progress notes.
Clinical Indicators:
- Patient admit for acute on chronic symptomatic anemia
- 1 unit PRBC given
- 2/8 PN 'Iron deficiency noted-start on iron pills'
Laboratory Tests
08/19/24 08/20/24
14:30 05:36
Hgb 7.9 L 9.5 L D
Laboratory Tests
08/19/24
16:23
Iron < 20 L
TIBC 424
% Saturation 4.89554 L
Ferritin 4.9 L
Please clarify the relationship between these conditions:
Yes, _anemia__ is related to/associated with/due to _iron deficiency__.
No, _anemia__ is not related to/associated with/due to _iron deficiency__ but it is due to . (Please specify)
Unable to determine
Use of terms such as suspected, likely, concern for, or probable (associated with a specific diagnosis that is being evaluated, monitored, or treated as if it exists) are acceptable and can be coded in the inpatient setting, when documented at the
time of discharge.
Thank you,
Abby Rosales RN
CDI Specialist
Please use your independent medical judgment in providing your response.
--- NOTE | 2024-08-22 10:34 | PN.CDI ---
CDI
- -
CDI:
Physician Documentation Request
Admit Date: 08/19/24 18:33
Dear Doctor Kyaw,
Please review the following and provide your response in the progress notes.
Clinical Indicators:
Height: 4'9
Weight: 84 lbs
BMI: 18.2
If possible, please provide an associated diagnosis related to the abnormal BMI, such as:
Underweight
Cachectic
Other (please specify)
Use of terms such as suspected, likely, concern for, or probable (associated with a specific diagnosis that is being evaluated, monitored, or treated as if it exists) are acceptable and can be coded in the inpatient setting, when documented at the
time of discharge.
Thank you,
Abby Rosales RN
CDI Specialist
Please use your independent medical judgment in providing your response.
[2024-08-23 20:13] LABS: Hepatitis C Antibody Negative (Negative)
== END 2024-08-20 14:43 | disposition home or self-care (01) | DRG 812 ==
LOC: 3 WEST ACU 18:33
PROVIDERS: Emergency Medicine; ADMITTING PHYSICIAN Internal Medicine; CONSULT PHYSICIAN Internal Medicine; EMERGENCY PHYSICIAN Emergency Medicine; FAMILY PHYSICIAN Internal Medicine
PROC: 30233N1 Transfusion of Nonautologous Red Blood Cells into Peripheral Vein, Percutaneous Approach (ICD-10-PCS; 2024-08-19)
DX: D50.9 Iron deficiency anemia, unspecified (principal); K92.1 Melena; Z68.1 Body mass index [BMI] 19.9 or less, adult; I10 Essential (primary) hypertension; M34.1 CR(E)ST syndrome; M34.89 Other systemic sclerosis; K21.9 Gastro-esophageal reflux disease without esophagitis; R63.6 Underweight; I25.2 Old myocardial infarction; Z79.899 Other long term (current) drug therapy; Z88.1 Allergy status to other antibiotic agents; Z88.2 Allergy status to sulfonamides; Z88.0 Allergy status to penicillin; Z79.631 Long term (current) use of antimetabolite agent
CPT/HCPCS: 36430; 80048; 80053; 82728; 83540; 83550; 85025; 86803; 86850; 86900; 86901; 86920; 96374; 97162; 97166; 99285; J8610; P9016

== ENCOUNTER → 2024-10-17 11:46 | Outpatient (REF) | payer BC, SELFPAY | LOC: RAD 11:46 | PROVIDERS: ATTENDING PHYSICIAN Podiatrist; FAMILY PHYSICIAN Internal Medicine | DX: I73.89 Other specified peripheral vascular diseases (principal) | CPT/HCPCS: 93922; 93925 ==

== ENCOUNTER → 2024-11-14 15:11 | Outpatient (REF) | payer BC, SELFPAY | LOC: WDC 15:11 | PROVIDERS: ATTENDING PHYSICIAN Internal Medicine | DX: Z12.31 Encounter for screening mammogram for malignant neoplasm of breast (principal) | CPT/HCPCS: 77063; 77067 ==